=== PATIENT | male | born 1975 | race American Indian/Alaskan Native ===

== ENCOUNTER 2018-11-06 09:56 | Emergency (ER) | payer MEDICARE ==
[2018-11-06] MEDS ORDERED: PROVENTIL IH ONE (11:56)
[2018-11-06] MEDS ORDERED: NACL 0.9% 1000 ML 1,000 ML IV ONE (11:56)
[2018-11-06] MEDS ORDERED: TORADOL IV ONE (11:56)
[2018-11-06] MEDS ORDERED: ATROVENT IH ONE (11:56)
[2018-11-06 12:29] LABS: Basophils # (Auto) 0.1 K/mm3 (0.0-0.1); Basophils % (Auto) 1.3 % (0.0-1.8); Eosinophils # (Auto) 0.1 K/mm3 (0.0-0.4); Eosinophils % (Auto) 1.3 % (0.0-4.3); Hematocrit 39.5 % (35.5-45.6); Lymphocytes # (Auto) 2.3 K/mm3 (1.2-5.4); Lymphocytes % (Auto) 33.3 % (13.4-35.0); Mean Corpuscular HGB Conc 33 % (32-34); Mean Corpuscular Volume 94 fl (84-94); Monocytes # (Auto) 0.4 K/mm3 (0.0-0.8); Monocytes % (Auto) 5.5 % (0.0-7.3); Platelet Count 272 K/mm3 (140-440); Red Blood Count 4.19 M/mm3 (3.65-5.03); Red Cell Distribution Width 13.2 % (13.2-15.2)
[2018-11-06 12:49] LABS: BUN/Creatinine Ratio 13; Blood Urea Nitrogen 9 mg/dL (9-20); Calcium 8.6 mg/dL (8.4-10.2); Hemolysis Index 14
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
--- NOTE | 2018-11-06 13:26 | XRay Report ---
FINAL REPORT EXAM: XR CHEST ROUTINE 2V HISTORY: cough TECHNIQUE: 2 view examination of the chest PRIORS: None FINDINGS: There is no visible pulmonary consolidation, pleural effusion, or pneumothorax. Cardiac silhouette size is normal without vascular congestion. No visible acute displaced fracture in the regional skeleton. IMPRESSION: No evidence of acute cardiopulmonary disease
[2018-11-06] MEDS ORDERED: PERCOCET 5/325 ONE (13:45)
[2018-11-06] MEDS ORDERED: PERCOCET 5/325 PO ONE (13:45)
[2018-11-06 14:24] VITALS: BP 145/91
== END 2018-11-06 14:25 | disposition home or self-care (01) ==
LOC: ED 09:56
DX: J11.1 Influenza due to unidentified influenza virus with other respiratory manifestations (principal); J45.909 Unspecified asthma, uncomplicated; F17.200 Nicotine dependence, unspecified, uncomplicated; F12.10 Cannabis abuse, uncomplicated
CPT/HCPCS: 36415; 71046; 80048; 83880; 85025; 96361; 96374; 99284; J1885; J7030

== ENCOUNTER 2018-11-08 10:01 | Emergency (ER) | payer MEDICARE ==
--- NOTE | 2018-11-08 10:55 | XRay Report ---
ROUTINE CHEST, TWO VIEWS: HISTORY: Cough. The trachea, heart, mediastinal contour, lung baez and bony thorax are unremarkable. IMPRESSION: Unremarkable chest x-ray.
[2018-11-08] MEDS ORDERED: PROVENTIL IH ONE ×2 (10:57→12:08)
[2018-11-08] MEDS ORDERED: SOLU-Medrol IV ONE (10:57)
--- NOTE | 2018-11-08 10:58 | Emergency Department Report ---
Minor Respiratory - HPI Chief Complaint: Upper Respiratory Infection Stated Complaint: recent flu- no better Time Seen by Provider: 11/08/18 10:56 Duration: 5 Days Severity: moderate Minor Respiratory: Yes Rhinorrhea, Yes Sore Throat, Yes Able to Tolerate Fluids, Yes Cough, No Ear Pain, No Sick Contacts, No Hemoptysis, No Chest Pain, No Shortness of Breath, No Fever Other History: Patient is a 43-year-old -[place] male who comes to the emergency room today in follow-up for his recent flu. He was seen a couple weeks ago by his ID doctor who tested him for flu and he was positive. At that time he was put on Tamiflu and a Z-[place]. He then came back to the ER this past Thursday and was reevaluated. He was sent home with Melissa Roman and symptom relief. He comes in again today stating his cough is getting no better. He has no recent travel. No night sweats and no fever. He states that his viral load was undetectable just prior to getting the flu. ED Review of Systems ROS: Stated complaint: COLD SX/TIGHTNESS IN CHEST Other details as noted in HPI Comment: All other systems reviewed and negative Constitutional: see HPI, chills Eyes: denies: eye pain ENT: denies: ear pain Respiratory: see HPI, cough Cardiovascular: chest pain (w cough). denies: palpitations Endocrine: denies: flushing Gastrointestinal: denies: nausea Genitourinary: denies: urgency Musculoskeletal: denies: back pain Skin: denies: lesions Neurological: denies: headache Psychiatric: denies: anxiety ED Past Medical Hx - Past Medical History Hx Asthma: Yes (BRONCHIAL ASTHMA) Hx HIV: Yes Additional medical history: NEUROPATHY, hepatitis B - Surgical History Past Surgical History?: Yes Additional Surgical History: SURGERY ON ZYGOMATIC ARCH S/P FALL - Social History Smoking Status: Current Every Day Smoker Substance Use Type: None - Medications Home Medications: Home Medications Medication Instructions Recorded Confirmed Last Taken Type Atazanavir Sulfate [Reyataz] 300 mg PO QDAY 10/24/15 10/24/15 10/24/15 14:00 History Lisinopril [Zestril TAB] 20 mg PO QDAY #60 tablet 10/24/15 Unknown Rx Pregabalin [Lyrica] 100 mg PO TID 10/24/15 10/24/15 10/24/15 06:00 History Ritonavir [Norvir] 100 mg PO QDAY 10/24/15 10/24/15 10/24/15 14:00 History Tenofovir Disoproxil Fumarate 200 mg PO QDAY 10/24/15 10/24/15 10/24/15 14:00 History [Viread] Albuterol Sulfate [Albuterol 0.63% 3 ml IH TID PRN #100 vial 11/06/18 Unknown Rx NEBS] Benzonatate [Tessalon Perles] 100 mg PO Q8HR PRN #20 capsule 11/06/18 Unknown Rx Methocarbamol [Robaxin-750] 750 mg PO Q6HR PRN #20 tablet 11/06/18 Unknown Rx Hydrocodone/Chlorphen P-Stirex 115 ml PO HS #1 bottle 11/08/18 Unknown Rx [Tussionex Pennkinetic Susp] Sulfamethoxazole/Trimethoprim 1 each PO BID #10 tablet 11/08/18 Unknown Rx [Bactrim DS TAB] predniSONE [Deltasone] 20 mg PO DAILY #5 tablet 11/08/18 Unknown Rx Minor Respiratory Exam - Exam General: Vital signs noted. No distress. Alert and acting appropriately. HEENT: Yes Moist Mucous Membranes, No Pharyngeal Erythema, No Pharyngeal Exudates, No Rhinorrhea, No Conjuctival Injection, No Frontal Tenderness, No Maxillary Tenderness Ear: Neither TM Bulge, Neither TM Erythema, Neither EAC Pain, Neither EAC Discharge Neck: Yes Supple, No Adenopathy Lungs: Yes Good Air Exchange, Yes Wheezes, Yes Cough, No Ronchi, No Stridor, No Labored Respirations, No Retractions, No Use of Accessory Muscles, No Other Abnormal Lung Sounds Heart: Yes Regular, No Murmur Abdomen: Yes Normal Bowel Sounds, No Tenderness, No Peritoneal Signs Neurologic: Alert and oriented, no deficits. Musculoskeletal: Unremarkable. ED Course Vital Signs 11/08/18 11/08/18 10:22 10:45 Temperature 98.7 F Pulse Rate 60 Respiratory 18 19 Rate Blood Pressure 145/88 O2 Sat by Pulse 98 Oximetry - Reevaluation(s) Reevaluation #1: 11/08/18 12:10 INTERMITTENTLY GOT BETTER THEN STARTED TO WHEEZE AGAIN WILL REPEAT [facility] [place] ED Medical Decision Making - Lab Data Result diagrams: 11/08/18 11:01 11/08/18 11:01 - Radiology Data Radiology results: report reviewed, image reviewed interpreted by me: NO CONSOLIDATION NORMAL - Medical Decision Making Labs 11/08/18 11/08/18 11:01 11:01 WBC 9.3 RBC 4.32 Hgb 13.3 Hct 40.8 MCV 94 MCH 31 MCHC 33 RDW 13.2 Plt Count 260 Lymph % (Auto) 33.6 [place] % (Auto) 6.9 Eos % (Auto) 1.6 Baso % (Auto) 0.7 Lymph # 3.1 [place] # 0.6 Eos # 0.2 Baso # 0.1 Seg Neutrophils % 57.2 Seg Neutrophils # 5.3 Sodium 139 Potassium 4.0 Chloride 98.2 Carbon Dioxide 30 Anion Gap 15 BUN 7 L Creatinine 0.6 L Estimated GFR > 60 BUN/Creatinine Ratio 12 Glucose 80 Calcium 8.[address] NAP DC HOME WITH RX AND FOLLOW UP INSTRUCTIONS. AMBULATORY TAKING PO FEELING BETTER - Differential Diagnosis RO PNA Critical care attestation.: If time is entered above; I have spent that time in minutes in the direct care of this critically ill patient, excluding procedure time. ED Disposition Clinical Impression: URTI (acute upper respiratory infection), Cough, HIV disease, Smoker Disposition: DC-01 TO HOME OR SELFCARE Is pt being admited?: No Does the pt Need Aspirin: No Condition: Stable Instructions: Upper Respiratory Infection (ED), Human Immunodeficiency Virus Infection (ED) Additional Instructions: MEDS ORDERED TODAY FOLLOW UP WITH PCP IN 48 HOURS FOR RECHECK RETURN TO ER IF FEVER OVER 101 THAT DOES NOT GO DOWN WITH MOTRIN OR TYLENOL HYDRATE WELL WITH WATER MOTRIN OR TYLENOL FOR PAIN OR FEVER OVER THE COUNTER SIGN AND SYMPTOM RELIEF YOUR LABS AND XRAY ARE NORMAL TODAY. Prescriptions: Hydrocodone/Chlorphen P-Stirex [Tussionex Pennkinetic Susp] 115 ml PO HS #1 bottle predniSONE [Deltasone] 20 mg PO DAILY #5 tablet Sulfamethoxazole/Trimethoprim [Bactrim DS TAB] 1 each PO BID #10 tablet Referrals: PRIMARY CARE, [Primary Care Provider] - 3-5 Days COLTEN SAWYER MD [Staff Physician] - 3-5 Days Time of Disposition: 11:28
[2018-11-08] MEDS ORDERED: NORCO 5/325 PO ONE (11:14)
[2018-11-08 11:29] LABS: BUN/Creatinine Ratio 12; Blood Urea Nitrogen 7 mg/dL (9-20); Calcium 8.9 mg/dL (8.4-10.2); Hemolysis Index 6
[2018-11-08 11:35] LABS: Basophils # (Auto) 0.1 K/mm3 (0.0-0.1); Basophils % (Auto) 0.7 % (0.0-1.8); Eosinophils # (Auto) 0.2 K/mm3 (0.0-0.4); Eosinophils % (Auto) 1.6 % (0.0-4.3); Hematocrit 40.8 % (35.5-45.6); Hemoglobin 13.3 gm/dl (11.8-15.2); Lymphocytes # (Auto) 3.1 K/mm3 (1.2-5.4); Lymphocytes % (Auto) 33.6 % (13.4-35.0); Mean Corpuscular HGB Conc 33 % (32-34); Mean Corpuscular Volume 94 fl (84-94); Monocytes # (Auto) 0.6 K/mm3 (0.0-0.8); Monocytes % (Auto) 6.9 % (0.0-7.3); Platelet Count 260 K/mm3 (140-440); Red Blood Count 4.32 M/mm3 (3.65-5.03); Red Cell Distribution Width 13.2 % (13.2-15.2)
[2018-11-08] MEDS ORDERED: IBUPROFEN PO ONE (12:21)
[2018-11-08] MEDS ORDERED: MAGNESIUM SULFATE 2GM/50ML 2 GM/50 ML BAG IV ONE (14:00)
[2018-11-08] MEDS ORDERED: BACTRIM DS PO ONE (14:12)
[2018-11-08] MEDS ORDERED: NACL 0.9% 1000 ML 1,000 ML IV ONE (14:12)
--- NOTE | 2018-11-08 17:40 | Cat Scan Report ---
FINAL REPORT EXAM: CT CHEST W CON HISTORY: COUGH TECHNIQUE: CT of the chest was performed after the administration of intravenous contrast. Reconstructions were included in the coronal and sagittal planes. PRIORS: Chest x-ray from 11/06/2018. FINDINGS: Great vessels: The thoracic aorta is normal in caliber. The great vessels are patent. Lungs and airways: No pleural effusion. No pulmonary nodules or masses. No airspace consolidation. Th e airways are patent. No bronchiectasis. Bilateral dependent atelectasis is seen. Mediastinum, heart, pericardium: No mediastinal lymphadenopathy. No cardiac chamber enlargement. No p ericardial effusion. Thoracic inlet, chest wall, axilla: No chest wall masses. The visualized portions of the thyroid glan d demonstrate no focal lesion. No axillary lymphadenopathy. Gynecomastia is noted bilaterally. Upper abdomen: The visualized structures demonstrate no specific abnormality. Bones: Degenerative changes are seen in the thoracic spine. IMPRESSION: 1. No acute process in the chest. 2. Bilateral gynecomastia.
[2018-11-08 18:14] VITALS: BP 150/81
== END 2018-11-08 18:12 | disposition home or self-care (01) ==
LOC: ED 10:01
DX: J06.9 Acute upper respiratory infection, unspecified (principal); F17.200 Nicotine dependence, unspecified, uncomplicated; J45.909 Unspecified asthma, uncomplicated; G62.9 Polyneuropathy, unspecified
CPT/HCPCS: 36415; 71046; 71260; 80048; 85025; 94640; 96365; 96375; 99285; J2930; J3475; J7030; Q9967; 96361

== ENCOUNTER 2019-06-02 23:31 | Emergency (ER) | payer MEDICARE ==
[2019-06-02] MEDS ORDERED: PROVENTIL IH ONE (23:59)
[2019-06-02] MEDS ORDERED: ATROVENT IH ONE (23:59)
[2019-06-03] MEDS ORDERED: ZOFRAN IV ONE
[2019-06-03 00:05] LABS: Basophils # (Auto) 0.2 K/mm3 (0.0-0.1); Basophils % (Auto) 1.3 % (0.0-1.8); Eosinophils # (Auto) 0.1 K/mm3 (0.0-0.4); Hematocrit 39.9 % (35.5-45.6); Hemoglobin 13.1 gm/dl (11.8-15.2); Lymphocytes # (Auto) 3.2 K/mm3 (1.2-5.4); Lymphocytes % (Auto) 26.3 % (13.4-35.0); Mean Corpuscular HGB Conc 33 % (32-34); Mean Corpuscular Volume 93 fl (84-94); Monocytes # (Auto) 0.9 K/mm3 (0.0-0.8); Monocytes % (Auto) 7.8 % (0.0-7.3); Platelet Count 326 K/mm3 (140-440); Red Blood Count 4.26 M/mm3 (3.65-5.03)
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
[2019-06-03 00:18] LABS: Alanine Aminotransferase 26 units/L (7-56); Albumin 4.7 g/dL (3.9-5); BUN/Creatinine Ratio 10; Blood Urea Nitrogen 9 mg/dL (9-20); Calcium 9.4 mg/dL (8.4-10.2); Hemolysis Index 5
--- NOTE | 2019-06-03 02:24 | Cat Scan Report ---
CT abdomen pelvis w con INDICATION / CLINICAL INFORMATION: abdominal pain with bloody stools for the past 2 weeks. TECHNIQUE: 100 cc of Omnipaque 350 was administered intravenously All CT scans at this location are performed us ing CT dose reduction for VISH[place] by means of automated exposure control. COMPARISON: 03/28/2016 FINDINGS: No free fluid is seen in the abdomen. The liver, spleen, kidneys, pancreas, adrenal glands and great vessels are normal. There are a few mildly dilated loops of small bowel present proximally In the pelvis, no free fluid is seen. No enlarged lymph nodes are identified. The bladder and the johnnie endix are normal. No significant skeletal abnormality is seen. IMPRESSION: There are a few mildly dilated loops of small bowel present proximally which is a nonspecific finding . Otherwise negative CT abdomen and pelvis. Signer Name: John Gregory MD FACR Signed: 06/03/2019 2:20 AM Workstation Name: [id number]
[2019-06-03 02:37] LABS: INR 1.06 (0.87-1.13)
[2019-06-03 02:38] LABS: Partial Thromboplastin Time 23.4 Sec. (24.2-36.6)
[2019-06-03] MEDS ORDERED: PROVENTIL IH ONE (02:40)
[2019-06-03] MEDS ORDERED: SOLU-Medrol IV ONE (02:41)
[2019-06-03] MEDS ORDERED: MORPHINE IV ONE ×2 (02:41)
--- NOTE | 2019-06-03 03:45 | XRay Report ---
CHEST 1 VIEW INDICATION / CLINICAL INFORMATION: cough. COMPARISON: None available. FINDINGS: SUPPORT DEVICES: None. HEART / MEDIASTINUM: No significant abnormality. LUNGS / PLEURA: No significant pulmonary or pleural abnormality. No pneumothorax. ADDITIONAL FINDINGS: No significant additional findings. IMPRESSION: No acute pulmonary or pleural abnormality Signer Name: John Gregory MD FACR Signed: 06/03/2019 3:41 AM Workstation Name: [id number]
[2019-06-03 04:01] VITALS: BP 119/81
== END 2019-06-03 04:31 | disposition home or self-care (01) ==
LOC: ED 23:31
DX: K92.2 Gastrointestinal hemorrhage, unspecified (principal); J45.909 Unspecified asthma, uncomplicated; F17.200 Nicotine dependence, unspecified, uncomplicated; F12.10 Cannabis abuse, uncomplicated; Z21 Asymptomatic human immunodeficiency virus [HIV] infection status; Z98.890 Other specified postprocedural states; Z79.899 Other long term (current) drug therapy
CPT/HCPCS: 36415; 71045; 74177; 80053; 85025; 85610; 85730; 94640; 96374; 96375; 96376; 99285; J2270; J2405; J2930; Q9967; 94644

== ENCOUNTER 2019-06-03 06:13 | Emergency (ER) | payer MEDICARE ==
[2019-06-03] MEDS ORDERED: PROVENTIL IH ONE (06:29)
[2019-06-03] MEDS ORDERED: ATROVENT IH ONE (06:29)
[2019-06-03] MEDS ORDERED: SUBLIMAZE IV ONE ×2 (06:30→09:26)
[2019-06-03] MEDS ORDERED: ZOFRAN IV ONE (06:30)
--- NOTE | 2019-06-03 06:39 | Emergency Department Report ---
HPI - General Chief Complaint: Back Pain/Injury Time Seen by Provider: 06/03/19 06:18 - HPI HPI: Room 22 The patient is a 43-year-old male presenting with a chief complaint of bilateral flank and low back pain. The patient was seen in this ED earlier this evening for bilateral flank pain and lower back pain in addition to wheezing. Patient had a chest x-ray and CT scan performed of the abdomen. CT scan: Revealed no specific proximal small bowel dilation. The patient was administered nebulized and given prescription for pain medication to go home with. The patient states after his discharge to get his medication filled(ultrasound, Zofran) but his bilateral flank pain and low back pain persisted. Patient describes his pain as cramping and constant in nature. Patient currently gets his pain score of 8/10. The patient admits he has had a cough occasionally productive of yellow sputum for the past 3 days. Patient denies any new complaints Location: [See above] Duration: [See above] Quality: [See above] Severity: [See above] Modifying factors: [see above] Context: [see above] Mode of transportation: [not driving] ED Past Medical Hx - Past Medical History Hx Asthma: Yes (BRONCHIAL ASTHMA) Hx HIV: Yes (last CD4 count over 700 Spring 2018) Additional medical history: NEUROPATHY, hepatitis B - Surgical History Additional Surgical History: SURGERY ON ZYGOMATIC ARCH S/P FALL - Family History Family history: no significant - Social History Smoking Status: Current Every Day Smoker (1/7 pack per day) Substance Use Type: Alcohol (occasional), Marijuana - Medications Home Medications: Home Medications Medication Instructions Recorded Confirmed Last Taken Type Atazanavir Sulfate [Reyataz] 300 mg PO QDAY 10/24/15 10/24/15 10/24/15 14:00 History Lisinopril [Zestril TAB] 20 mg PO QDAY #60 tablet 10/24/15 Unknown Rx Pregabalin [Lyrica] 100 mg PO TID 10/24/15 10/24/15 10/24/15 06:00 History Ritonavir [Norvir] 100 mg PO QDAY 10/24/15 10/24/15 10/24/15 14:00 History Tenofovir Disoproxil Fumarate 200 mg PO QDAY 10/24/15 10/24/15 10/24/15 14:00 History [Viread] Albuterol Sulfate [Albuterol 0.63% 3 ml IH TID PRN #100 vial 11/06/18 Unknown Rx NEBS] Benzonatate [Tessalon Perles] 100 mg PO Q8HR PRN #20 capsule 11/06/18 Unknown Rx Methocarbamol [Robaxin-750] 750 mg PO Q6HR PRN #20 tablet 11/06/18 Unknown Rx Hydrocodone/Chlorphen P-Stirex 115 ml PO HS #1 bottle 11/08/18 Unknown Rx [Tussionex Pennkinetic Susp] Sulfamethoxazole/Trimethoprim 1 each PO BID #10 tablet 11/08/18 Unknown Rx [Bactrim DS TAB] predniSONE [Deltasone] 20 mg PO DAILY #5 tablet 11/08/18 Unknown Rx ALBUTEROL Inhaler (OR & NICU) 2 puff IH QID PRN #1 inhalation 06/03/19 Unknown Rx [ProAir HFA Inhaler] Ciprofloxacin HCl [Ciprofloxacin 500 mg PO Q12HR #14 tab 06/03/19 Unknown Rx TAB] HYDROcodone/APAP 5-325 [[place] 1 - 2 each PO Q6HR PRN #14 tablet 06/03/19 Unknown Rx 5/325] Ibuprofen [Motrin 800 MG tab] 800 mg PO Q8HR PRN #20 tablet 06/03/19 Unknown Rx Ondansetron [Zofran Odt] 4 mg PO Q8HR PRN #14 tab.rapdis 06/03/19 Unknown Rx Prednisone [predniSONE 10 mg 10 mg PO .TAPER #1 tab.ds.pk 06/03/19 Unknown Rx (6-Day Pack, 21 Tabs)] predniSONE [Deltasone] 20 mg PO QDAY #4 tab 06/03/19 Unknown Rx traMADol [Ultram] 50 mg PO Q6HR PRN #14 tablet 06/03/19 Unknown Rx ED Review of Systems ROS: Stated complaint: DIANNA Other details as noted in HPI Constitutional: fever (subjective) Eyes: denies: eye pain ENT: denies: throat pain Respiratory: cough, wheezing Cardiovascular: denies: chest pain Endocrine: no symptoms reported Gastrointestinal: abdominal pain Genitourinary: denies: dysuria Musculoskeletal: back pain Neurological: denies: headache Physical Exam - Physical Exam Vital Signs: Vital Signs 06/03/19 06:19 Temperature 98.4 F Pulse Rate 87 Respiratory 16 Rate Blood Pressure 117/73 O2 Sat by Pulse 99 Oximetry Physical Exam: GENERAL: The patient is well-developed well-nourished male lying on stretcher not appearing to be in acute distress. [] HEENT: Normocephalic. Atraumatic. Extraocular motions are intact. Patient has moist mucous membranes. NECK: Supple. Trachea midline CHEST/LUNGS: Diffuse wheezing. Occasional cough with deep inspiration. There is no respiratory distress noted. HEART/CARDIOVASCULAR: Regular. There is no tachycardia. There is no gallop rub or murmur. ABDOMEN: Abdomen is soft, with diffuse soreness to palpation. Patient has normal bowel sounds. There is no abdominal distention. SKIN: There is no rash. There is no edema. There is no diaphoresis. NEURO: The patient is awake, alert, and oriented. The patient is cooperative. The patient has normal speech MUSCULOSKELETAL: There is no evidence of acute injury. ED Course Vital Signs 06/03/19 06:19 Temperature 98.4 F Pulse Rate 87 Respiratory 16 Rate Blood Pressure 117/73 O2 Sat by Pulse 99 Oximetry ED Medical Decision Making - Lab Data Result diagrams: 06/03/19 06:38 06/03/19 06:38 - Differential Diagnosis acute bronchitis, myalgia, Critical care attestation.: If time is entered above; I have spent that time in minutes in the direct care of this critically ill patient, excluding procedure time. ED Disposition Clinical Impression: Acute asthma exacerbation, Myalgia, Acute bronchitis Disposition: DC-01 TO HOME OR SELFCARE Is pt being admited?: No Does the pt Need Aspirin: No Condition: Stable Instructions: Acute Bronchitis (ED) Additional Instructions: Return to the emergency department immediately should you develop worsening symptoms, fever, inability to tolerate food or liquid or any other concerns. Prescriptions: Ciprofloxacin HCl [Ciprofloxacin TAB] 500 mg PO Q12HR #14 tab Ibuprofen [Motrin 800 MG tab] 800 mg PO Q8HR PRN #20 tablet PRN Reason: Pain , Severe (7-10) HYDROcodone/APAP 5-325 [[place] 5/325] 1 - 2 each PO Q6HR PRN #14 tablet PRN Reason: Pain Prednisone [predniSONE 10 mg (6-Day Pack, 21 Tabs)] 10 mg PO .TAPER #1 tab.ds.pk Referrals: BERKLEY LIGHT MD [Primary Care Provider] - 3-5 Days Time of Disposition: 09:09
[2019-06-03 07:03] LABS: Hematocrit 41.1 % (35.5-45.6); Hemoglobin 14.1 gm/dl (11.8-15.2); Mean Corpuscular HGB Conc 34 % (32-34); Mean Corpuscular Volume 92 fl (84-94); Platelet Count 316 K/mm3 (140-440); Red Blood Count 4.45 M/mm3 (3.65-5.03); Red Cell Distribution Width 12.3 % (13.2-15.2)
[2019-06-03 07:20] LABS: Alanine Aminotransferase 26 units/L (7-56); Albumin 4.8 g/dL (3.9-5); BUN/Creatinine Ratio 10; Blood Urea Nitrogen 8 mg/dL (9-20); Calcium 9.5 mg/dL (8.4-10.2); Hemolysis Index 4
[2019-06-03 07:58] LABS: Bilirubin,Urine NEG (Negative); Blood,Urine SM (Negative); Color,Urine Amber (Yellow); Mucus,Urine 3+ /HPF
[2019-06-03 07:59] LABS: Protein,Urine >500 mg/dL (Negative)
[2019-06-03] MEDS ORDERED: NACL 0.9% 1000 ML 1,000 ML IV ONE ×2 (08:08)
[2019-06-03] MEDS ORDERED: TORADOL IV ONE (09:26)
[2019-06-03 09:45] LABS: Eosinophils % (Manual) 0 % (0.0-4.3); Monocytes % (Manual) 0 % (0.0-7.3); Total Cells Counted 100
[2019-06-03 09:46] LABS: Platelet Estimate Consistent w Auto; RBC Morphology Normal
[2019-06-03 10:24] VITALS: BP 105/60
== END 2019-06-03 10:29 | disposition home or self-care (01) ==
LOC: ED 06:13
DX: J45.901 Unspecified asthma with (acute) exacerbation (principal); J20.9 Acute bronchitis, unspecified; R10.9 Unspecified abdominal pain; M54.5 Low back pain; G62.9 Polyneuropathy, unspecified; B19.10 Unspecified viral hepatitis B without hepatic coma; F17.200 Nicotine dependence, unspecified, uncomplicated; F12.10 Cannabis abuse, uncomplicated; Z21 Asymptomatic human immunodeficiency virus [HIV] infection status; Z98.890 Other specified postprocedural states; Z79.899 Other long term (current) drug therapy
CPT/HCPCS: 36415; 80053; 81001; 85007; 85025; 94640; 96374; 96375; 96376; 99284; J1885; J2405; J3010; J7030; 94644